=== PATIENT | male | born 1980 | race African-American/Black ===

== ENCOUNTER 2016-08-23 01:37 | Emergency (ER) | payer BC, OTHER ==
[2016-08-23 01:41] VITALS: TEMP 97.9
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
[2016-08-23 04:55] VITALS: BP 131/71; PULSE 68; RESP 16
--- NOTE | 2016-08-23 05:07 | XR ---
EXAM: XR RIGHT HAND, 3 views INDICATION: 36-year-old male with hand pain. COMPARISON: None. FINDINGS: 3 views of the right hand obtained. Bony structures are intact. Bone mineralization is within normal limits. Joint spaces are preserved. Soft tissues within normal limits. No radio-opaque foreign bodies seen. IMPRESSION: No acute fracture.
--- NOTE | 2016-08-23 05:08 | XR ---
EXAM:RIGHT SHOULDER, 2 INDICATION: 36-year-old male with shoulder pain. COMPARISON: None. FINDINGS: 2 views of the right shoulder are obtained. Bony structures are intact. Bone mineralization is within normal limits. No dislocation at the glenohumeral joint. Joint spaces are preserved. Soft tissues are within normal limits. IMPRESSION: No acute fracture or dislocation identified.
== END 2016-08-23 04:54 | disposition home or self-care (01) ==
LOC: EC 01:37
DX: S01.112A Laceration without foreign body of left eyelid and periocular area, initial encounter (principal); S46.911A Strain of unspecified muscle, fascia and tendon at shoulder and upper arm level, right arm, initial encounter; S60.221A Contusion of right hand, initial encounter; F17.200 Nicotine dependence, unspecified, uncomplicated; W01.198A Fall on same level from slipping, tripping and stumbling with subsequent striking against other object, initial encounter
CPT/HCPCS: 12013; 70450; 70486; 96365; 99284

== ENCOUNTER 2017-08-30 11:34 | Emergency (ER) | payer BC ==
[2017-08-30 12:18] VITALS: BP 132/77; PULSE 81; RESP 18; TEMP 97.8
[2017-08-30] MEDS ORDERED: KETOROLAC 30 MG/ML 1 ML VIAL IM STA (12:45)
--- NOTE | 2017-08-30 12:56 | ED ---
Back Pain HPI - General Chief Complaint: Back Pain/Injury Stated Complaint: Back pain Time Seen by Provider: 08/30/17 12:29 Source: patient, RN notes reviewed Limitations: no limitations - History of Present Illness Initial Comments: This is a 37-year-old male who presents to the emergency department with chief complaint of acute low back pain. Patient states that he developed left-sided low back pain last . He states that the pain is positional, increasing with quick movements or staying in one position for too long. He describes the pain as a burning sensation. Denies numbness or tingling, saddle paresthesias, loss of bladder or bowel function. He denies any specific injury or fall. He states he has been taking Motrin. Denies urinary symptoms such as dysuria, hematuria or increased frequency. Denies shortness of breath or chest pain, abdominal pain, nausea or vomiting, headache or vision changes. - Related Data Previous Rx's Medication Instructions Recorded Naproxen 500 mg PO Q12HR #20 tab 08/23/16 Allergies Allergy/AdvReac Type Severity Reaction Status Date / Time No Known Allergies Allergy Verified 08/30/17 12:18 Review of Systems ROS Statement: Those systems with pertinent positive or pertinent negative responses have been documented in the HPI. ROS Other: All systems not noted in ROS Statement are negative. Past Medical History Past Medical History: Asthma History of Any Multi-Drug Resistant Organisms: None Reported Past Surgical History: No Surgical Hx Reported Past Psychological History: No Psychological Hx Reported Smoking Status: Current every day smoker Past Alcohol Use History: Occasional Past Drug Use History: Marijuana General Exam - General Exam Comments Initial Comments: General: Awake and alert, well-developed; in no apparent distress. Patient lying on back with knees flexed. HEENT: Head atraumatic, normocephalic. Pupils are equal, round and reactive to light. Extraocular movements intact. Oropharynx moist without erythema or exudate. Neck: Supple. Normal ROM. Cardiovascular: Regular rate and rhythm. No murmurs, rubs or gallops. Chest symmetrical. Respiratory: Lungs clear to auscultation bilaterally. No wheezes, rales or rhonchi. Normal respiratory effort with no use of accessory muscles. Musculoskeletal: Normal range of motion of the spine. There is tenderness on palpation of left sacroiliac joint. Sensation is intact. Pedal and posterior tibial pulses are 2+ equal and palpable bilaterally. Skin: [place], warm and dry without rashes or lesions. Neurological: Alert and oriented x3. CN II-XII grossly intact. Speech is fluent and answers are appropriate. No focal neuro deficits. Psychiatric: Normal mood and affect. No overt signs of depression or anxiety noted. Limitations: no limitations Course Vital Signs 08/30/17 12:16 Temperature 97.8 F Pulse Rate 81 Respiratory 18 Rate Blood Pressure 132/77 O2 Sat by Pulse 98 Oximetry Medical Decision Making - Medical Decision Making This is a 37-year-old male who presents to the emergency department with chief complaint of acute low back pain. Patient denies any specific injury or falls. He denies saddle paresthesias, loss of bladder or bowel function, numbness or tingling. He denies IV drug use. There is tenderness on palpation of left sacroiliac joint. Patient was given Toradol and the emergency department. Vital signs have been stable and he is in no acute distress. He will be discharged home with prescriptions for ibuprofen and muscle relaxers. Patient is to follow-up with his primary care provider. He is in agreement with plan and voices understanding. All questions were answered. Disposition Clinical Impression: Acute low back pain Disposition: HOME SELF-CARE Condition: Good Instructions: Acute Low Back Pain (ED), Sacroiliitis (ED) Additional Instructions: Please take medications as prescribed. Please follow up with primary care provider within 1-2 days. Return to emergency department if symptoms should worsen or any concerns arise. Referrals: None,Stated [Primary Care Provider] - 1-2 days Raad Fulton MD [STAFF PHYSICIAN] - 1-2 days Time of Disposition: 12:58
== END 2017-08-30 13:18 | disposition home or self-care (01) ==
LOC: EC 11:34
DX: M54.5 Low back pain (principal); F17.200 Nicotine dependence, unspecified, uncomplicated
CPT/HCPCS: 99283; 96372; J1885

== ENCOUNTER → 2020-11-22 | Outpatient (CLI) | payer OTHER ==
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
[2020-11-22 08:00] LABS: Albumin 4.1 g/dL (3.5-5.0)
== END | disposition home or self-care (01) ==
LOC: RADCTMAIN 07:07
PROVIDERS: ATTEND Orthopaedic Surgery
DX: S52.031D Displaced fracture of olecranon process with intraarticular extension of right ulna, subsequent encounter for closed fracture with routine healing (principal)
CPT/HCPCS: 82040; 82306; 82672; 83970; 84134; 84403

== ENCOUNTER → 2020-12-31 | Outpatient (CLI) | payer OTHER ==
[2021-01-01 13:32] LABS: Cotinine 91.9 ng/mL (<2.0); Nicotine <2.0 ng/mL (<2.0)
== END | disposition home or self-care (01) ==
LOC: LABWHC1 14:35
PROVIDERS: ATTEND Orthopaedic Surgery
DX: S52.031D Displaced fracture of olecranon process with intraarticular extension of right ulna, subsequent encounter for closed fracture with routine healing (principal); X58.XXXD Exposure to other specified factors, subsequent encounter
CPT/HCPCS: 36415; G0480; 80323

== ENCOUNTER → 2021-01-30 | Outpatient (CLI) | payer OTHER | END | disposition home or self-care (01) | LOC: LABWHC1 12:18 | PROVIDERS: ATTEND Orthopaedic Surgery | DX: S52.031D Displaced fracture of olecranon process with intraarticular extension of right ulna, subsequent encounter for closed fracture with routine healing (principal); M25.521 Pain in right elbow; X58.XXXD Exposure to other specified factors, subsequent encounter | CPT/HCPCS: 36415; G0480; 80323 ==